=== PATIENT | female | born 1940 | race Caucasian/White ===

== ENCOUNTER 2020-01-23 14:29 | Inpatient (IN) | payer MEDICARE, OTHER ==
[2020-01-23 15:11] VITALS: BMI 25.1
[2020-01-23] MEDS ORDERED: Ondansetron ODT 4 MG TAB PO PRN (15:17)
[2020-01-23] MEDS ORDERED: Calcium Carbonate 500 MG ChewTAB PO PRN (15:17)
[2020-01-23] MEDS: Nicotine 21 MG PATCH TD SCH (17:08)
[2020-01-23] MEDS: Carvedilol 3.125 MG TAB PO SCH (20:01)
--- NOTE | 2020-01-23 21:30 | HP ---
HISTORY OF PRESENT ILLNESS: Ms. Churchill is a 79-year-old white female who presented to [facility] on January 17, 2020. Unfortunately, she lives at home and has a caregiver who comes in a few hours every day. The patient was seen the morning of the , found on the floor in her room covered with blood. She had urinated on herself and was brought to the hospital. Workup was done, and she was felt to have had a syncopal episode. She did have a laceration of the back of her head that required korin. Otherwise, the patient was admitted and found to have multiple medical problems. She eventually was stabilized, and now is being transferred to [facility] for physical therapy and occupational therapy to increase her strength and stamina, so hopefully she can go home. Her daughter is Codi Tesfaye, but unfortunately, she is not here, unavailable at this time. PAST MEDICAL HISTORY: 1. Hypertension. 2. Coronary artery disease. 3. Dementia. 4. Tobacco abuse. 5. Generalized weakness. PAST SURGICAL HISTORY: 1. Coronary artery bypass graft x2. 2. Hysterectomy. 3. Lumbar spine surgery x3. SOCIAL HISTORY: The patient lives by herself, but she has a caregiver who goes by for several hours every day and a daughter who lives somewhere nearby. The patient smokes a pack of cigarettes every day and has for many years. The patient denies alcohol use. The patient denies recreational drug use. FAMILY HISTORY: The patient denies any knowledge of her mom's or dad's health history from prior records. The patient has family history significant for coronary artery disease. The patient is noted to be a DNAR according to her daughter and prior status. ALLERGIES: THE PATIENT IS ALLERGIC TO PENICILLIN AND THE PATIENT CONCURS WITH THAT. PRESENT MEDICATIONS: The patient is presently on the following, 1. Carvedilol 3.125 mg b.i.d. 2. Lisinopril 20 mg each day. 3. Atorvastatin 80 mg each day. 4. Pantoprazole, which is Protonix 40 mg daily. 5. Ondansetron, which is Zofran 4 mg q.6 hours p.r.n. nausea and vomiting. 6. Nicoderm patch 21 mg daily. 7. Tums 1000 mg q.4 hours p.r.n. The patient is unable to delineate review of history because of her dementia. PHYSICAL EXAMINATION: GENERAL: This is a well-developed, well-nourished, very pleasant white female, who is able to talk but gets confused. She is oriented to person, but not to place or time. VITAL SIGNS: This afternoon on arrival was 128/62, pulse 82, respirations 18, O2 saturation 94% on room air, T-max 97.2. The patient's weight is 146 pounds 4.8 ounces. GENERAL: This is a well-developed, well-nourished, elderly white female, in no apparent distress at this time. HEENT: Normocephalic and nontraumatic cranium. Pupils are equally round and reactive. Extraocular movements are intact. Posterior occiput reveals several korin in her hair, which are oozing a little bit secondary to her rubbing her hand back there and rubbing her head into her pillow. NECK: Supple without masses, nodes, or bruits. No jugular venous distention is noted. Trachea is noted to be midline. CHEST: Clear to auscultation. No rales, no rhonchi, no wheezes are heard. HEART: Regular rate and rhythm without murmurs, gallops, or rubs. ABDOMEN: Slightly obese soft nontender. Normal bowel sounds are noted in all 4 quadrants. No rebound or guarding is noted. : Deferred. EXTREMITIES: No clubbing, cyanosis, or edema. NEUROLOGICAL: The patient reveals cranial nerves 2 through 12 are grossly intact. Patellar tendons are 2+. Achilles tendon is 2+. MUSCULOSKELETAL: The patient has good movement in all extremities. SKIN: The scalp laceration. The patient is oriented to person, but not to place or time. ASSESSMENT: 1. Hypertension. 2. Coronary artery disease, status post coronary artery bypass graft in the distant past. 3. Lumbar surgery x3. 4. Dementia. 5. Generalized weakness. PLAN: 1. Continue to monitor the patient's blood pressure closely and adjust medications if needed. 2. Continue to monitor the patient for any further syncopal episodes. 3. Stress ulcer prophylaxis. 4. Decubitus precautions. 5. DVT prophylaxis. 6. Continue nicotine patch. 7. Encourage the patient not to smoke. 8. Physical therapy and occupational therapy. 9. Will be contacted the patient's daughter. 10. Most likely placement in a nursing care facility if the patient is unable to return home. Job ID: [id number]
[2020-01-24 05:21] LABS: #Basophils 0.1 thou/uL (0.0-0.2); #Eosinphils 0.2 thou/uL (0.0-0.7); #Lymphocytes 3.1 thou/uL (1.20-3.40); #Monocytes 0.6 thou/uL (0.11-0.59); #Neutrophils 3.9 thou/uL (1.40-6.50); %Basophils 1.5 % (0.0-1.0); %Eosinophils 2.4 % (0.0-10.0); %Lymphocytes 38.9 % (21.0-51.0); %Monocytes 7.6 % (0.0-10.0); %Neutrophils 49.7 % (42.0-75.0); Hemoglobin 9.7 g/dL (12.0-16.0); Mean Corpuscular HGB CONC 31.5 g/dL (32.0-36.0); Mean Corpuscular Hemoglobin 26.2 pg (27.0-31.0); Mean Corpuscular Volume 83.3 fL (78.0-98.0); Mean Platelet Volume 6.3 fL (7.4-10.4); Platelet Count 327 thou/uL (130-400); RBC Distribution Width 13.1 % (11.5-14.5); White Blood Cell (WBC) Count 7.9 thou/uL (4.8-10.8)
[2020-01-24 05:37] LABS: ALT (SGPT) 10 U/L (8-55); AST (SGOT) 16 U/L (5-34); Albumin 3.4 g/dL (3.4-4.8); Alkaline Phosphatase 83 U/L (40-110); Anion Gap 12 mmol/L (10-20); BUN (Urea Nitrogen) 7 mg/dL (9.8-20.1); Bilirubin, Total 0.2 mg/dL (0.2-1.2); Calc. Creatinine Clearance 71 mL/min (70-130); Calcium 8.9 mg/dL (7.8-10.44); Carbon Dioxide 24 mmol/L (23-31); Chloride 105 mmol/L (98-107); Estimated GFR-MDRD 81; Globulin 2.6 g/dL (2.4-3.5); Glucose 93 mg/dL (83-110); Potassium 3.7 mmol/L (3.5-5.1); Sodium 137 mmol/L (136-145)
[2020-01-24] MEDS: Atorvastatin Calcium 40 MG TAB PO SCH (08:35)
[2020-01-24] MEDS: Carvedilol 3.125 MG TAB PO SCH ×2 (08:35→20:02)
[2020-01-24] MEDS: Lisinopril 20 MG TAB PO SCH (08:35)
[2020-01-24 11:47] LABS: SARS-CoV-2 MS2 Positive; SARS-CoV-2 N Gene Negative; SARS-CoV-2 S Gene Negative; SARS-CoV-2 by NAA Not Detected (NotDetected); SARS-CoV-2 orf1ab Negative
--- NOTE | 2020-01-24 13:58 | PRG ---
DATE OF SERVICE: 01/24/2020 Ms. Churchill is a 79-year-old white female, who fell at home. She was found the next morning covered with blood and she was brought to the emergency room. She was worked up and found to have had a syncopal episode. She did have a laceration at the back of head that required some stainless steel korin. She was admitted and her multiple medical problems were treated and stabilized. She has now been transferred to [facility] for physical therapy and occupational therapy to increase her strength and her stamina. Her daughter hopes that she can eventually go home. Her daughter is Codi Tesfaye. SUBJECTIVE: The patient states she is doing well. She is eating well. She is not constipated. She states she did good in therapy today, but she does have a poor memory. She is not sure exactly when she came. She wants to go home today. OBJECTIVE: VITAL SIGNS: Today reveal blood pressure this morning was 130/63, pulse 64, respirations 20, O2 saturation 94% on room air, T-max 97.6. PHYSICAL EXAMINATION: GENERAL: This is a well-developed, well-nourished, very pleasant 79-year-old demented white female, in no apparent distress at this time. HEENT: Normocephalic and nontraumatic cranium. The pupils are equally round. Extraocular movements intact. Nose and throat are slightly dry. NECK: Supple without masses, nodes, or bruits. CHEST: Clear to auscultation. No rales, no rhonchi, no wheezes are heard. No cough is noted. HEART: Reveals a regular rate and rhythm without murmurs, gallops, or rubs. ABDOMEN: Somewhat obese. It is soft and nontender. Normal bowel sounds are noted in all 4 quadrants. No rebound or guarding is noted. No CVA tenderness is noted. : Deferred. EXTREMITIES: Revealed no clubbing, cyanosis, or edema. Just generalized weakness is noted. NEUROLOGIC: The patient has no focal deficits. MUSCULOSKELETAL: The patient has good movements and did walk this morning. SKIN: Reveals a scalp laceration on the back, that is oozing at times, but the patient tends to pick at it and rub it in her pillow, so it oozes a little bit more. The patient is oriented to person and place, but not time. She knows that she is at the hospital, but not which hospital. ASSESSMENT: 1. Metabolic encephalopathy, slightly improved from yesterday. 2. Hypertension. 3. Coronary artery disease, status post CABG in the distant past. 4. Tobacco abuse. 5. Lumbar surgery x3 with chronic back pain. 6. Dementia. 7. Generalized weakness. PLAN: 1. We will continue to monitor the patient's blood pressure closely, adjust medications if needed. 2. We will continue to monitor the patient for any further syncopal episodes. 3. Continue to monitor the patient for any chest pain. 4. Stress-ulcer prophylaxis. 5. Decubitus precautions. 6. Continue nicotine patch. 7. Encourage the patient to continue not to smoke. 8. Continue physical therapy and occupational therapy. 9. The patient is unable to participate well with therapy. Most likely, we will have a placement in nursing care facility. Job ID: [id number] MTDD
[2020-01-24] MEDS: Nicotine 21 MG PATCH TD SCH (16:40)
[2020-01-25] MEDS: Lisinopril 20 MG TAB PO SCH (08:16)
[2020-01-25] MEDS: Atorvastatin Calcium 40 MG TAB PO SCH (08:16)
[2020-01-25] MEDS: Carvedilol 3.125 MG TAB PO SCH ×2 (08:16→20:08)
[2020-01-25] MEDS: Nicotine 21 MG PATCH TD SCH (16:54)
[2020-01-26] MEDS: Atorvastatin Calcium 40 MG TAB PO SCH (08:01)
[2020-01-26] MEDS: Carvedilol 3.125 MG TAB PO SCH ×2 (08:01→20:48)
[2020-01-26] MEDS: Lisinopril 20 MG TAB PO SCH (08:01)
[2020-01-26] MEDS: Nicotine 21 MG PATCH TD SCH (16:57)
--- NOTE | 2020-01-26 20:11 | PRG ---
DATE OF SERVICE: 01/26/2020 SUBJECTIVE: The patient feels well, asking when she can be discharged home. However, I explained that she needed to work with Physical Therapy and prove that she is safe to be discharged home to care for self. She understands this and is willing to work tomorrow. OBJECTIVE: VITAL SIGNS: Show blood pressure is 165/73, temperature is 97, pulse 84, respirations 22, and O2 saturations 98% on room air. LUNGS: Clear. CARDIAC: Showed regular rhythm. ABDOMEN: Soft and nontender. SKIN/EXTREMITIES: Displayed no edema, clubbing, or cyanosis. ASSESSMENT: 1. Improving metabolic encephalopathy. 2. Stable hypertension. 3. Stable coronary artery disease. 4. Chronic dementia. 5. Generalized weakness. PLAN: 1. Continue PT, OT. 2. Dr. Mcgrath discussed discharge planning with family. 3. Continue nicotine patch. 4. Continue stress ulcer prophylaxis. Job ID: [id number]
--- NOTE | 2020-01-26 20:15 | PRG ---
DATE OF SERVICE: 01/25/2020 SUBJECTIVE: The patient is lying in bed, resting. No complaints, pain, shortness of breath, or dizziness. She is slightly confused, but in no distress. OBJECTIVE: VITAL SIGNS: Show to have temperature 97.9, pulse 83, respirations 18, O2 sats 96% on room air, blood pressure 134/64. LUNGS: Clear. CARDIAC: Shows regular rhythm. ABDOMEN: Soft and nontender. SKIN/EXTREMITIES: Display no edema, clubbing, or cyanosis. LABORATORY DATA: Laboratories normal. ASSESSMENT: 1. Resolving metabolic encephalopathy. 2. Stable hypertension. 3. Stable coronary artery disease. 4. Stable dementia. PLAN: 1. Continue to monitor vital signs. 2. Continue syncope precautions. 3. Continue stress ulcer prophylaxis. 4. Restart PT and OT next week. Job ID: [id number]
[2020-01-27] MEDS: Atorvastatin Calcium 40 MG TAB PO SCH (08:22)
[2020-01-27] MEDS: Carvedilol 3.125 MG TAB PO SCH ×2 (08:23→20:36)
[2020-01-27] MEDS: Lisinopril 20 MG TAB PO SCH (08:27)
--- NOTE | 2020-01-27 12:53 | PRG ---
DATE OF SERVICE: 01/27/2020 SUBJECTIVE: This is a well-developed 79-year-old white female, who fell at home. She was found the next morning covered with blood because she hit her head. She was brought to the emergency room and thought to have had a syncopal episode. She had a laceration in the posterior occiput that required some korin. She was admitted with multiple medical problems, stabilized, now transferred to [facility] for PT and OT to increase her strength and stamina. The patient states she had a good weekend, but states she fell on Monday. I discussed that with the nurses after I saw her early Monday morning. They say they have no record of her falling and it most likely is going to be her remembers that she fell at home. OBJECTIVE: VITAL SIGNS: Reveal blood pressure this morning 148/67, pulse 68 to 84, respirations 18 to 22, O2 saturation 94% to 98% on room air, T-max 97.5. GENERAL: On physical exam, this is a well-developed, well-nourished, pleasant 79-year-old white female, in no apparent distress. She states she has not had her therapy yet this morning. HEENT: Normocephalic and nontraumatic cranium except for the posterior occiput, in which the sutures are still healing. Extraocular movements are intact. Nose and throat are slightly dry, but clear. NECK: Supple without masses, nodes, or bruits. CHEST: Clear to auscultation. No rales, rhonchi, or wheezes are heard. No cough is noted. HEART: Reveals a regular rate and rhythm without murmurs, gallops, or rubs. ABDOMEN: Obese, soft, nontender without organomegaly. Normal bowel sounds are noted. No rebound or guarding is noted. No CVA tenderness. : Deferred. EXTREMITIES: Reveal no clubbing, cyanosis, or edema. She has generalized weakness. NEUROLOGIC: The patient has no focal deficits. The patient is oriented to person and place, but not time. MUSCULOSKELETAL: The patient has good movements and did walk last week. SKIN: Reveals scalp lesion with decreased oozing, but still stainless steel korin. ASSESSMENT: 1. Metabolic encephalopathy, slightly improved again from last week. 2. Hypertension. 3. Coronary artery disease, status post coronary artery bypass graft in the distant past. 4. Tobacco abuse. 5. Lumbar surgery x3 with chronic back pain. 6. Dementia. 7. Generalized weakness. PLAN: 1. Continue to follow the patient's blood pressure closely. Adjust medications if needed. 2. Continue to monitor the patient for the syncopal episodes. 3. Continue to monitor the patient for any chest pain. 4. Stress ulcer prophylaxis. 5. Decubitus precautions. 6. Continue nicotine patch. 7. Encourage the patient to continue not to smoke. 8. Continue PT and OT. 9. If the patient is unable to participate well in therapy, most likely may have to put her in a senior care facility. 10. The patient did well actually last Monday and followed directions fairly well. Job ID: [id number]
[2020-01-27] MEDS: Nicotine 21 MG PATCH TD SCH (16:26)
[2020-01-28 03:35] LABS: Bacteria/HPF 2+ HPF (None Seen); Bilirubin Negative (Negative); Blood, Urine Large (Negative); Clarity Cloudy (Clear); Glucose, Urine (Dipstick) Negative (Negative); Ketone, Urine Negative (Negative); Leukocyte Large (Negative); Nitrite Negative (Negative); Protein, Urine (Dipstick) 30 mg/dL (Neg-Trace); RBC/HPF Greater than 50 HPF (0-3); Squamous Epithelial None Seen HPF (0-3); WBC/HPF Greater Than 50 HPF (0-3)
[2020-01-28] MEDS: Atorvastatin Calcium 40 MG TAB PO SCH (08:28)
[2020-01-28] MEDS: Carvedilol 3.125 MG TAB PO SCH ×2 (08:28→20:07)
[2020-01-28] MEDS: Lisinopril 20 MG TAB PO SCH (08:28)
[2020-01-28] MEDS ORDERED: Ondansetron ODT 4 MG TAB SL PRN (10:00)
[2020-01-28] MEDS ORDERED: Sulfameth/Trimethoprim DS 800-160mg TAB PO SCH ×2 (10:45→21:00)
[2020-01-28] MEDS: Nicotine 21 MG PATCH TD SCH (17:05)
[2020-01-28] MEDS: Sulfameth/Trimethoprim DS 800-160mg TAB PO SCH (20:07)
[2020-01-29] MEDS: Lisinopril 20 MG TAB PO SCH (08:47)
[2020-01-29] MEDS: Atorvastatin Calcium 40 MG TAB PO SCH (08:47)
[2020-01-29] MEDS: Carvedilol 3.125 MG TAB PO SCH ×2 (08:47→21:00)
[2020-01-29] MEDS: Sulfameth/Trimethoprim DS 800-160mg TAB PO SCH ×2 (08:48→21:00)
--- NOTE | 2020-01-29 11:44 | PRG ---
DATE OF SERVICE: 01/29/2020 SUBJECTIVE: Ms. Churchill is a 79-year-old white female, who fell at home. The next morning, she was found covered in blood after she hit her head. She was brought to the emergency room and thought to have had a syncopal episode. She had stitches placed in the posterior occiput that seemed to ooze for several days. She finally was admitted to [facility] for physical therapy and occupational therapy to increase her strength and stamina. The patient had significant dementia and has difficulty at times following commands, but eventually with therapy, has shown that she walks if you are very persistent. She gets confused at times. She is not safe to be home by herself and needs 24-hour assistance. Therapy had her in conference yesterday and she is ready for discharge to Therapy. Apparently, there was no family at the meeting yesterday. She has very poor safety awareness and cognition. She needs standby credit assistant for all ADLs and transfer. When she is in rolling walker, she is able to ambulate from her room all the way to the gym, which is fairly decent. OBJECTIVE: VITAL SIGNS: Today reveal blood pressure 125/58, pulse 71, respirations 18, O2 saturation 93% to 94% on room air, and T-max 98.1. GENERAL: On physical exam, this is a well-developed, well-nourished, pleasant white female. I have seen her every morning, but she does not recognize me again today. HEENT: Normocephalic and nontraumatic cranium. Pupils are equal, round, and reactive. Extraocular movements are intact. Nose and throat are slightly dry, but clear. NECK: Supple without masses, nodes or bruits. CHEST: Clear to auscultation. No rales, rhonchi, wheezes or cough is heard. HEART: Regular rate and rhythm without murmurs, gallops or rubs. ABDOMEN: Obese, soft, and nontender without organomegaly. Normal bowel sounds are noted in all 4 quadrants. No rebound or guarding is noted. : Deferred. EXTREMITIES: No clubbing, cyanosis or edema. She does have generalized weakness, but is much stronger. NEUROLOGIC: She has no focal deficits. She is oriented to person and sometimes place. MUSCULOSKELETAL: She has much better movements, but needs some standby assist. ASSESSMENT: 1. Metabolic encephalopathy, continues. 2. Hypertension. 3. Coronary artery disease. 4. Tobacco abuse in the past. 5. Lumbar surgery x3 with chronic pain. 6. Dementia. 7. Generalized weakness. PLAN: 1. Continue to monitor the patient's blood pressure closely. 2. Monitor the patient for syncopal episodes. 3. Continue to monitor the patient for any chest pain. 4. Stress ulcer prophylaxis. 5. Decubitus precautions. 6. Continue nicotine patch and we will decrease as able. 7. Continue physical therapy and occupational therapy. 8. Discharge planning for the patient. 9. The patient will need 24-hour supervision. Job ID: [id number] MTDD
[2020-01-29] MEDS: Nicotine 21 MG PATCH TD SCH (16:47)
[2020-01-30] MEDS: Atorvastatin Calcium 40 MG TAB PO SCH (09:04)
[2020-01-30] MEDS: Sulfameth/Trimethoprim DS 800-160mg TAB PO SCH ×2 (09:05→20:40)
[2020-01-30] MEDS: Lisinopril 20 MG TAB PO SCH (09:05)
[2020-01-30] MEDS: Carvedilol 3.125 MG TAB PO SCH ×2 (09:05→20:40)
--- NOTE | 2020-01-30 10:19 | PRG ---
DATE OF SERVICE: 01/30/2020 SUBJECTIVE: Ms. Churchill is a pleasant 79-year-old white female, who fell at home. She was covered in blood and hit her head. She had to have sutures and korin placed in the posterior occiput and had a syncopal episode. She was stabilized and transferred to [facility] for physical therapy and occupational therapy to increase her strength and stamina. She has actually done very well and walked 230 feet without resting yesterday. I did talk with the daughter this morning in anticipation of her going home on Monday, Monday or Monday. She is trying to make arrangements because she will need 24-hour care. The daughter brought up that in the emergency room when she was admitted that she had 3 masses. We did pull up the CT scans. 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 She also had 2 very small pulmonary nodules, one on each side, one was 7 mm, another one was 5 mm, and she had a hilar 2.5-cm mass. They recommended a PET scan for further delineation of that. We do not have PET scanning here. They recommended outpatient followup and evaluation. We will make copies of that and give that to the patient's daughter, and she will bring it to her PCP who can follow up and continue to work that up. OBJECTIVE: VITAL SIGNS: This morning reveal blood pressure of 158/67, blood pressure yesterday evening was 135/59, pulse 75 to 77, respirations 18 to 20, O2 sat 94% to 91% on room air, T-max 98.7. GENERAL: On physical exam, this is a well-developed, well-nourished, pleasant white female, in no apparent distress at this time. HEENT: Normocephalic and nontraumatic cranium. Pupils equally round and reactive. Extraocular movements are intact. The posterior occiput still has korin that are still oozing a little bit, so we will continue to wait before we take those out. NECK: Supple without masses, nodes or bruits. CHEST: Clear to auscultation. No rales, rhonchi or wheezes are heard. HEART: Regular rate and rhythm without murmurs, gallops or rubs. ABDOMEN: Obese, soft, and nontender without organomegaly. Normal bowel sounds in all 4 quadrants. No rebound or guarding is noted. : Deferred. EXTREMITIES: Generalized weakness, but much improved. NEUROLOGIC: Neurologically, she has no focal deficits. She is only oriented to person. MUSCULOSKELETAL: She is doing much better and walked 230 feet yesterday. ASSESSMENT: 1. Embolic encephalopathy, improved. 2. Dementia, improved. 3. Hypertension. 4. Coronary artery disease. 5. Tobacco abuse in the past. 6. Lumbar surgery x3 with chronic pain. 7. Some dysphagia, but the patient if she sits in the appropriate position can eat chopped meat, etc. 8. Generalized weakness. PLAN: 1. Discharge planning for Monday, Monday or Monday. 2. Continue to monitor the patient's blood pressure closely. 3. Monitor the patient for syncopal episodes. 4. Continue to monitor the patient for chest pain. 5. Stress ulcer prophylaxis. 6. Decubitus precautions. 7. Continue nicotine patch, decrease as able. 8. Continue PT and OT. 9. The patient will need 24 hours supervision. 10. The patient will need workup for her 2 small pulmonary nodules, 5 mm and 7 mm in the lungs, and 2.5-cm hilar mass. Job ID: [id number]
[2020-01-30] MEDS: Nicotine 21 MG PATCH TD SCH (17:57)
[2020-01-31 05:27] LABS: Red Blood Cell (RBC) Count 3.87 mill/uL (4.20-5.40); White Blood Cell (WBC) Count 11.3 thou/uL (4.8-10.8)
[2020-01-31 05:28] LABS: #Lymphocytes 2.5 thou/uL (1.20-3.40); #Neutrophils 7.4 thou/uL (1.40-6.50); %Basophils 1.1 % (0.0-1.0); %Eosinophils 1.9 % (0.0-10.0); %Lymphocytes 22.4 % (21.0-51.0); %Monocytes 9.1 % (0.0-10.0); %Neutrophils 65.5 % (42.0-75.0); Hemoglobin 10.1 g/dL (12.0-16.0); Manual Diff?? NO; Mean Corpuscular HGB CONC 31.2 g/dL (32.0-36.0); Mean Corpuscular Volume 83.3 fL (78.0-98.0); Mean Platelet Volume 7.1 fL (7.4-10.4); Platelet Count 321 thou/uL (130-400); RBC Distribution Width 13.2 % (11.5-14.5)
[2020-01-31 05:29] LABS: #Basophils 0.1 thou/uL (0.0-0.2); #Eosinphils 0.2 thou/uL (0.0-0.7)
[2020-01-31 05:40] LABS: ALT (SGPT) 9 U/L (8-55); AST (SGOT) 15 U/L (5-34); Albumin 3.6 g/dL (3.4-4.8); Alkaline Phosphatase 99 U/L (40-110); Anion Gap 14 mmol/L (10-20); BUN (Urea Nitrogen) 12 mg/dL (9.8-20.1); Bilirubin, Total 0.2 mg/dL (0.2-1.2); Calc. Creatinine Clearance 59 mL/min (70-130); Calcium 9.3 mg/dL (7.8-10.44); Carbon Dioxide 23 mmol/L (23-31); Chloride 102 mmol/L (98-107); Estimated GFR-MDRD 67; Globulin 2.9 g/dL (2.4-3.5); Glucose 92 mg/dL (83-110); Potassium 4.1 mmol/L (3.5-5.1); Protein, Total 6.5 g/dL (6.0-8.3); Sodium 135 mmol/L (136-145)
[2020-01-31] MEDS: Atorvastatin Calcium 40 MG TAB PO SCH (08:08)
[2020-01-31] MEDS: Sulfameth/Trimethoprim DS 800-160mg TAB PO SCH ×2 (08:09→20:38)
[2020-01-31] MEDS: Lisinopril 20 MG TAB PO SCH (08:09)
[2020-01-31] MEDS: Carvedilol 3.125 MG TAB PO SCH ×2 (08:10→20:39)
--- NOTE | 2020-01-31 11:15 | DIS ---
DATE OF ADMISSION: 01/23/2020 DATE OF DISCHARGE: 02/01/2020 HISTORY: The patient is a 79-year-old white female, who fell at home. She was covered with blood and she accidentally hit her head. She had to have sutures and korin in the posterior occiput. She was admitted to the hospital and found to have a syncopal episode. She was stabilized and transferred to [facility] for physical therapy and occupational therapy to increase her strength and stamina and to watch out for her metabolic encephalopathy. She is actually doing very well and is walking much better. I talked with her daughter again this morning and her daughter said she has to work tomorrow and she will pick her up tomorrow after she gets off work, which is 2:30. The patient has home health that will come by and she has 24-hour caregivers. We did discuss her medications and she does not have carvedilol, and Ms. Churchill also needs a few more days of Bactrim for her urinary tract infection. PHYSICAL EXAMINATION: VITAL SIGNS: Today reveal blood pressure of 123/58, pulse of 68, respirations of 19, O2 sat of 94% on room air, and T-max of 97.3. GENERAL: This is a well-developed, well-nourished, very pleasant 79-year-old white female, in no apparent distress at this time. HEENT: Normocephalic and nontraumatic cranium. Pupils are equally round and reactive. Extraocular movements are intact. Nose and throat are slightly dry. NECK: Supple without masses, nodes or bruits. CHEST: Clear to auscultation. No rales, rhonchi, wheezes or cough is noted. HEART: Regular rate and rhythm without murmurs, gallops or rubs. ABDOMEN: Obese, soft, and nontender without organomegaly. Normal bowel sounds are noted in all 4 quadrants. No rebound or guarding is noted. : Deferred. EXTREMITIES: Generalized weakness, which is much improved. NEUROLOGIC: She has no focal deficits. She is only oriented to person. MUSCULOSKELETAL: She is doing well, is walking much better. ASSESSMENT: 1. Embolic metabolic encephalopathy, improved. 2. Dementia, stable. 3. Hypertension. 4. Coronary artery disease. 5. Tobacco abuse in the past. 6. Lumbar surgery x3 with chronic pain. 7. Dysphagia, but if the patient sits in appropriate position, she can eat chopped foods and chopped meat. 8. Generalized weakness. DISCHARGE MEDICATIONS: Discharge medications will include the followin. Atorvastatin 80 mg every night. 2. Carvedilol 3.125 mg twice a day, which she will take from now on. 3. Lisinopril 20 mg daily. 4. Nicotine patch as needed, so that she does not smoke. 5. Trimethoprim and sulfamethoxazole, which is Bactrim DS, one pill twice a day until gone. 6. The patient also may take Protonix if needed over the counter. PLAN: 1. The patient is to be discharged tomorrow after the daughter gets off work at 2:30. 2. The patient will have home health, which has already been set up by [employer], our case loader operator. 3. The patient has 24-hour caregivers. She has 3 different ones, they will make sure that she is not by herself. 4. Continue to monitor the patient's blood pressure as needed. 5. Continue to monitor the patient for syncopal episodes. 6. Continue to monitor the patient for chest pain. 7. Stress ulcer prophylaxis. 8. Decubitus precautions. 9. Continue nicotine patch as needed. 10. Physical therapy and occupational therapy. 11. The patient will continue with 24 hours supervision at home. 12. The patient has 2 small pulmonary nodules, which are 5 mm and 7 mm in the lungs and a 2.5-cm hilar mass. Copies of the CT and MRI have been copied by myself and given to the nurse and they will give those to the patient's daughter when she picks her up tomorrow. I did talk with the daughter and she needs to follow up with her primary care doctor, who is either in [place] or [place]. They are to bring those scans and discuss outpatient workup. The patient's daughter did tell me that she had discussed with her mom in the past if she ever had cancer that she did not want to do anything about that. The patient's daughter is her power of estate attorney. They will bring that to their primary care doctor and decide if they want further workup. The patient is ready for discharge tomorrow at 2:15. Job ID: [id number]
[2020-01-31] MEDS: Nicotine 21 MG PATCH TD SCH (18:00)
[2020-02-01] MEDS: Atorvastatin Calcium 40 MG TAB PO SCH (09:02)
[2020-02-01] MEDS: Lisinopril 20 MG TAB PO SCH (09:02)
[2020-02-01] MEDS: Sulfameth/Trimethoprim DS 800-160mg TAB PO SCH (09:02)
[2020-02-01] MEDS: Carvedilol 3.125 MG TAB PO SCH (09:02)
[2020-02-01 09:13] VITALS: BP 106/51; TEMP 96.3
== END 2020-02-01 14:37 | disposition home health service (06) | DRG 72 ==
LOC: NAV ACUTE 14:29
PROVIDERS: ADMIT Family Medicine; ATTEND Family Medicine
DX: G93.41 Metabolic encephalopathy (principal); F03.90 Unspecified dementia, unspecified severity, without behavioral disturbance, psychotic disturbance, mood disturbance, and anxiety; I10 Essential (primary) hypertension; I25.10 Atherosclerotic heart disease of native coronary artery without angina pectoris; R13.10 Dysphagia, unspecified; Z95.1 Presence of aortocoronary bypass graft; Z90.49 Acquired absence of other specified parts of digestive tract; Z90.710 Acquired absence of both cervix and uterus; Z88.0 Allergy status to penicillin
CPT/HCPCS: 80053; 81001; 85025; 87635; U0003